=== PATIENT | female | born 1960 | race African-American/Black ===

== ENCOUNTER → 2019-09-10 | Outpatient (CLI) | payer OTHER | LOC: SJCVCIMAG 10:55 | DX: R00.0 Tachycardia, unspecified (principal); I10 Essential (primary) hypertension; E78.5 Hyperlipidemia, unspecified; Z79.899 Other long term (current) drug therapy ==

== ENCOUNTER → 2019-09-11 | Outpatient (CLI) | payer OTHER | LOC: SJCVCIMAG 14:30 | DX: I34.0 Nonrheumatic mitral (valve) insufficiency (principal); R00.0 Tachycardia, unspecified; I11.9 Hypertensive heart disease without heart failure; E78.5 Hyperlipidemia, unspecified; Z79.82 Long term (current) use of aspirin; Z79.899 Other long term (current) drug therapy ==